=== PATIENT | male | born 1975 | race Caucasian/White ===

== ENCOUNTER 2018-02-28 12:50 | Emergency (ER) | payer MEDICARE, OTHER ==
[2018-02-28] MEDS: KETOROLAC 60 MG INJ IM (14:54)
[2018-02-28] MEDS: BENZTROPINE 2 MG INJ IM (15:04)
[2018-02-28 17:16] LABS: FREE THYROXINE INDEX (Calc) 3.42 ug/ml (0.65-3.89); T3 UPTAKE 38.4 % (23.5-40.5); T4 (THYROXINE) 8.9 ug/dl (5.5-11.0)
== END 2018-02-28 17:42 | disposition home or self-care (01) ==
LOC: E/R 12:50
DX: M26.69 Other specified disorders of temporomandibular joint (principal); G24.01 Drug induced subacute dyskinesia; R40.2142 Coma scale, eyes open, spontaneous, at arrival to emergency department; R40.2252 Coma scale, best verbal response, oriented, at arrival to emergency department; R40.2362 Coma scale, best motor response, obeys commands, at arrival to emergency department; T50.905A Adverse effect of unspecified drugs, medicaments and biological substances, initial encounter; Z87.891 Personal history of nicotine dependence
CPT/HCPCS: 70486; 84436; 84443; 84479; 93005; 96372; 99285-25